=== PATIENT | female | born 1960 | race Caucasian/White ===

== ENCOUNTER 2016-07-30 13:34 | Emergency (ER) | payer OTHER ==
[2016-07-30 13:40] VITALS: TEMP 97.9
--- NOTE | 2016-07-30 14:02 | EDPHY ---
H & P Stated Complaint: Hurts to take deep breath;sharp substerna pain ;sxs x 3 days; recent travel HPI/ROS: CHIEF COMPLAINT: Pain and pressure in chest HISTORY OF PRESENT ILLNESS: This patient is a healthy 55 year old female complaining of pain and pressure in her chest onset Saturday, three days ago, following heavy work shovelling and moving furniture. She describes "weight" in her mid-chest region, with a more pointed pain to the right of this. She states these sensations have become more constant over the last three days, and today she feels fatigued. She reports that she feels better when supine or sitting very straight. She denies shortness of breath, but states she has an "increased awareness of breathing". She denies abdominal pain, fever, nausea, or recent cough or other illness. She states she is generally quite healthy, and denies family cardiac history. She did travel to [place] one month ago, but states she wears support hose and has not noted any pain or swelling in her legs. She is planning to return to [place] this Saturday. REVIEW OF SYSTEMS: A ten point review of systems was performed and is negative with the exception of the items mentioned in the HPI. Source: Patient Exam Limitations: No limitations - Personal History Current Tetanus Diphtheria and Acellular Pertussis (TDAP): Yes - Medical/Surgical History PMH: Depression related to menstrual cycle (Wellbutrin) Other PMH: healthy - Social History Additional Social History: Social alcohol use. Nonsmoker. 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 PCP: SILVANO Li - Physical Exam Exam: General Appearance: Alert. Vital signs reviewed. Blood pressure 166/88. Eyes: Pupils equal and round, no conjunctival injection, no discharge. Anicteric. ENT, Mouth: Mucous membranes are moist, no oropharyngeal erythema or edema. Neck: No lymphadenopathy, supple. Respiratory: Lungs are clear to auscultation; no wheezes, rales, or rhonchi. Thorax: Nontender to palpation. No crepitus. Cardiovascular: Regular rate and rhythm; no murmur, rub, or gallop. Gastrointestinal: Abdomen is soft and nontender, no masses or organomegaly, bowel sounds normal. Skin: Warm and dry, no rashes on exposed skin, normal color. Back: Nontender to palpation over the thoracolumbar spine. No CVAT. Extremities: No lower extremity edema, no calf tenderness or swelling. Neurological: Alert and oriented. Moving all four extremities easily and equally. Psychiatric: Normal affect. Constitutional: Initial Vital Signs Temperature (C) 36.6 C 07/30/16 13:36 Heart Rate 78 07/30/16 13:36 Respiratory Rate 18 07/30/16 13:36 Blood Pressure 166/88 H 07/30/16 13:36 O2 Sat (%) 96 07/30/16 13:36 O2 Delivery Mode Room Air Allergies/Adverse Reactions: sulfamethoxazole [From Bactrim] Allergy (Unknown, Verified 07/30/16 13:40) trimethoprim [From Bactrim] Allergy (Unknown, Verified 07/30/16 13:40) Home Medications: Medication Instructions Recorded BUPROPION HCL [Bupropion Xl] 300 mg PO DAILY 06/12/10 PROGESTERONE 06/12/10 Medical Decision Making - Diagnostics EKG Interpretation: The 12 lead EKG was interpreted by emergency room physician. See hard copy and/ or "tracemaster" electronic copy for interpretation. Imaging Results: Imaging Impressions Chest X-Ray 07/30/16 14:22 Impression: No acute abnormality. Imaging: I viewed and interpreted images myself ED Course/Re-evaluation: This patient is a 55 year old female presenting with three day history of chest pressure and pain. She is otherwise healthy and denies history of family cardiac issues. Physical exam is unremarkable. She has very low risk factors for heart attack. Plan for chest pain workup including EKG, chest x-ray, 325mg PO Aspirin, and labs including CBC, CHEM, troponin, and D-dimer. Labs unremarkable. Chest x-ray shows no acute processes. 15:15 Reassessed patient. She is feeling the weight in her chest has "loosened up" after receiving a DuoNeb. Advised the patient that her labs look unremarkable. Troponin is normal. Given that she has had this pain for 3 days I doubt that this is ACS, especially in the face of a negative troponin after the cyst time. Has elapsed. Her heart score is 2, giving her a less than 1.7% chance of a major acute coronary event within the next 6 weeks. D-dimer is negative. Her Wells score to assess for PE is 0. I think that her pain is likely costochondritis/musculoskeletal. I am recommending anti-inflammatory medication. Plan to discharge home in good condition. She will retain a copy of her EKG from today to bring to [place] this week. Return precautions discussed. The patient is comfortable with the plan. She will follow up with her primary care physician for further risk stratification and testing as needed. She is aware of the fact that her blood pressure was high today in the emergency department. She will have it followed by her primary care physician. Differential Diagnosis: Chest pain including but not limited to myocardial ischemia, pulmonary embolus, chest wall pain, pleural inflammation and pulmonary infectious causes. - Data Points Laboratory Results: Laboratory Results 07/30/16 14:06 07/30/16 14:06 07/30/16 07/30/16 07/30/16 14:40 14:06 14:06 WBC 5.65 10^3/uL 10^3/uL (3.80-9.50) RBC 4.63 10^6/uL 10^6/uL (4.18-5.33) Hgb 14.6 g/dL g/dL (12.6-16.3) Hct 43.6 % % (38.0-47.0) MCV 94.2 fL fL (81.5-99.8) MCH 31.5 pg pg (27.9-34.1) MCHC 33.5 g/dL g/dL (32.4-36.7) RDW 12.2 % % (11.5-15.2) Plt Count 288 10^3/uL 10^3/uL (150-400) MPV 9.4 fL fL (8.7-11.7) Neut % (Auto) 66.5 % % (39.3-74.2) Lymph % (Auto) 23.5 % % (15.0-45.0) [place] % (Auto) 7.6 % % (4.5-13.0) Eos % (Auto) 1.2 % % (0.6-7.6) Baso % (Auto) 0.7 % % (0.3-1.7) Nucleat RBC Rel Count 0.0 % % (0.0-0.2) Absolute Neuts (auto) 3.75 10^3/uL 10^3/uL (1.70-6.50) Absolute Lymphs (auto) 1.33 10^3/uL 10^3/uL (1.00-3.00) Absolute Monos (auto) 0.43 10^3/uL 10^3/uL (0.30-0.80) Absolute Eos (auto) 0.07 10^3/uL 10^3/uL (0.03-0.40) Absolute Basos (auto) 0.04 10^3/uL 10^3/uL (0.02-0.10) Absolute Nucleated RBC 0.00 10^3/uL 10^3/uL (0-0.01) Immature Gran % 0.5 % % (0.0-1.1) Immature Gran # 0.03 10^3/uL 10^3/uL (0.00-0.10) D-Dimer < 0.27 ug/mLFEU ug/mLFEU (0.00-0.50) Sodium 142 mEq/L mEq/L (134-144) Potassium 4.3 mEq/L mEq/L (3.5-5.2) Chloride 107 mEq/L mEq/L (97-110) Carbon Dioxide 24 mEq/l mEq/l (22-31) Anion Gap 11 mEq/L mEq/L (8-16) BUN 16 mg/dL mg/dL (7-23) Creatinine 1.0 mg/dL mg/dL (0.6-1.0) Estimated GFR 57 Glucose 123 mg/dL H mg/dL (70-100) Calcium 9.8 mg/dL mg/dL (8.5-10.4) Troponin I < 0.012 ng/mL ng/mL (0-0.034) Medications Given: Discontinued Medications Albuterol/Ipratropium (Duoneb) 3 ml IH EDNOW ONE Stop: 07/30/16 14:53 Last Admin: 07/30/16 15:05 Dose: 3 ml Aspirin (Aspirin) 324 mg PO EDNOW ONE Stop: 07/30/16 14:23 Last Admin: 07/30/16 14:30 Dose: 324 mg Departure - Departure Disposition: Home, Routine, Self-Care Clinical Impression: Costal chondritis Chest pain Qualifiers: Chest pain type: other chest pain Qualified Code(s): R07.89 - Other chest pain Condition: Good Instructions: Chest Pain (ED), Costochondritis (ED) Additional Instructions: 1. While travelling to and from [place], wear your support hose and make sure to get up and move about the cabin. 2. Take Tylenol or ibuprofen as directed below for pain. 3. Return to the ED or seek local emergency healthcare for worsening pain, shortness of breath, heart palpitations, or other worsening of condition. 4. We will give you a copy of your EKG from today. Bring this with you when you travel for a baseline comparison. Adult Pain Control: We recommend Acetaminophen (Tylenol) and Ibuprofen (Motrin,Advil) for pain control. When pain is severe, both drugs can be used at the same time, but at different intervals. Please note the time differences. Your dose is: Acetaminophen 650mg every 4 to 6 hours Ibuprofen 400mg every 6-8 hours with food. Note: do not take Acetaminophen with Hydrocodone (Vicodin, Lortab) or Oycodone (Percocet). These medications also contain Acetaminophen. No more than 3000mg of Acetaminophen should be taken in 24 hours (for an adult). Referrals: Billie Archuleta PA [Primary Care Provider] - As per Instructions Report Scribed for: Cora Mejia Report Scribed by: Verona Ryder Date of Report: 07/30/16 Time of Report: 14:24 Physician Review and Approval Statement: 07/30/16 14:02 Portions of this note were transcribed by the medical claims specialist. I, Dr. Cora Mejia, personally performed the history, physical exam, and medical decision- making; and confirmed the accuracy of the information in the transcribed note.
--- NOTE | 2016-07-30 14:08 | CPEKG ---
Heart Rate: 68 RR Interval: 882 P-R Interval: 140 QRSD Interval: 106 QT Interval: 392 QTC Interval: 417 P [place]: 68 QRS [place]: 79 T Wave [place]: 58 EKG Severity - BORDERLINE ECG - EKG Impression: SINUS RHYTHM EKG Impression: PROBABLE LEFT ATRIAL ABNORMALITY EKG Impression: BORDERLINE T ABNORMALITIES, ANT-LAT LEADS Electronically Signed By: Gabriella Peacock 30-Jul-2016 15:27:26
[2016-07-30] MEDS ORDERED: ASPIRIN 81 MG CHEWABLE TAB PO ONE (14:22)
[2016-07-30 14:32] LABS: % IMMATURE GRANULYOCYTES 0.5 % (0.0-1.1); ABSOLUTE IMMATURE GRANULOCYTES 0.03 10^3/uL (0.00-0.10); ADD DIFF? NO; ADD MORPH? NO; ADD SCAN? NO; ATYPICAL LYMPHOCYTE FLAG 10 (0-99); FRAGMENT RBC FLAG 0 (0-99); HEMATOCRIT 43.6 % (38.0-47.0); HEMOGLOBIN 14.6 g/dL (12.6-16.3); LEFT SHIFT FLG 0 (0-99); LIPEMIA HEMOLYSIS FLAG 80 (0-99); MEAN CELL HEMOGLOBIN 31.5 pg (27.9-34.1); MEAN CELL HEMOGLOBIN CONCENTR. 33.5 g/dL (32.4-36.7); MEAN CELL VOLUME 94.2 fL (81.5-99.8); MEAN PLATELET VOLUME 9.4 fL (8.7-11.7); PLATELET CLUMPS FLAG 0 (0-99); PLATELET COUNT 288 10^3/uL (150-400); RED BLOOD CELL COUNT 4.63 10^6/uL (4.18-5.33); RED CELL DISTRIBUTION WIDTH 12.2 % (11.5-15.2)
[2016-07-30 14:42] LABS: ANION GAP 11 mEq/L (8-16); CALCIUM 9.8 mg/dL (8.5-10.4); CARBON DIOXIDE 24 mEq/l (22-31); CHLORIDE 107 mEq/L (97-110); GLOMERULAR FILTRATION RATE 57; GLUCOSE 123 mg/dL (70-100); POTASSIUM 4.3 mEq/L (3.5-5.2); SODIUM 142 mEq/L (134-144)
[2016-07-30] MEDS ORDERED: IPRATROPIUM/ALBUTEROL 3 ML DEYVIAL IH ONE (14:52)
[2016-07-30 14:53] LABS: TROPONIN I < 0.012 ng/mL (0-0.034)
[2016-07-30 15:14] VITALS: BP 125/85; RESP 16
[2016-07-30 15:42] VITALS: PULSE 76; O2SAT 93
== END 2016-07-30 15:35 | disposition home or self-care (01) ==
DX: M94.0 Chondrocostal junction syndrome [Tietze] (principal)

== ENCOUNTER → 2016-08-28 | Outpatient (CLI) | payer OTHER | LOC: FIMAGING 09:01 | PROVIDERS: ATTEND Physician Assistant | DX: Z12.31 Encounter for screening mammogram for malignant neoplasm of breast (principal) | CPT/HCPCS: G0202 ==

== ENCOUNTER → 2017-09-03 | Outpatient (CLI) | payer OTHER | LOC: FIMAGING 15:58 | PROVIDERS: ATTEND Physician Assistant | DX: Z12.31 Encounter for screening mammogram for malignant neoplasm of breast (principal); Z98.890 Other specified postprocedural states ==

== ENCOUNTER → 2018-02-06 | Outpatient (CLI) | payer OTHER | LOC: FIMAGING 08:29 | PROVIDERS: ATTEND Physician Assistant | DX: Z13.820 Encounter for screening for osteoporosis (principal); Z78.0 Asymptomatic menopausal state ==

== ENCOUNTER → 2018-09-04 | Outpatient (CLI) | payer OTHER | LOC: FIMAGING 09:18 ==